=== PATIENT | male | born 1945 | race Caucasian/White ===

== ENCOUNTER 2024-07-29 08:36 | Emergency (ER) | payer OTHER, MEDICARE, SELFPAY ==
[2024-07-29] VITALS (7 sets, daily range): BP systolic 153–191; BP diastolic 61–85; BMI 24.3
--- NOTE | 2024-07-29 09:19 | ED.GENMED ---
History of Present Illness
General
Chief Complaint: Back Pain
Source: patient and family
Exam Limitations: none
Time Seen by Provider: 07/29/24 09:02
History of Present Illness
History of Present Illness:
Patient is an 79-year-old male who presents to the ER for evaluation of right flank pain. Patient woke up in the middle of the night with pain to the right flank with radiates to the right groin. Pt has been nauseous and dry heaving.Pt denies
any obvious hematuria. He does have prostate issues and early has some difficulty initiating urine stream. Denies any trauma.
Past History
Past History
ED Past Medical History: Hypothyroidism
Social History
Personal:
Review of Systems
Review of Systems
Allergies reviewed?: Yes
All Other Systems: ROS reviewed and negative except as documented in HPI and ROS
Constitutional: Reports no symptoms; Denies fever, fatigue or chills
Respiratory: Reports no symptoms
ABD/GI: Reports abdominal pain (Pain in right lower groin) and nausea; Denies vomiting or diarrhea
: Reports no symptoms
Musculoskeletal: Reports no symptoms
Neurological: Reports no symptoms
Psychiatric: Reports no symptoms
Phy Exam
General Physical Exam
General Presentation: no apparent distress
General age: appears stated age
General Skin: warm and dry
General Habitus: normal
General Mental: alert
General Hydration: appears well hydrated
Gastrointestinal Exam
Gastrointestinal Exam: non tender and soft
Neurological Exam
Neurological Exam: alert and oriented x3
Skin Exam
Skin Exam: normal color and warm/dry
Psychiatric Exam
Psychiatric Exam: normal mood/affect
Course
Orders/Labs/Results
Orders:
Orders
07/29/24 09:18
CT Abd/pel Without Iv Or Oral Urgent
Comment:
Reason For Exam: right flank pain
IV Insert/Care/Rem.- Treatment PRN
0.9% Sodium Chloride 1000 ml [Nss] 1,000 ml IV BOLUS
07/29/24 09:19
Ketorolac [Toradol] 15 mg IV NOW STA
Ondansetron Injectable [Zofran] 4 mg IV NOW STA
07/29/24 09:32
Complete Blood Count/With Diff Urgent
Comprehensive Metabolic Panel Urgent
07/29/24 11:06
Urinalysis Reflex To Culture Urgent
Date Specimen was Collected: 07/29/24
Time Specimen was Collected: 09:24
07/29/24 11:37
Piperacillin/Tazo 3.375 Gram [Zosyn] 3.375 gram in 50 ml .ROUTE .STK-MED
Abnormal Lab Results
07/29/24 07/29/24
09:32 11:06
MPV 10.5 H fL
(7.4-10.4)
Absolute Lymphs (auto) 0.6 L 10^3/uL
(1.2-3.4)
Neutrophils % 86.0 H %
(42.2-75.2)
Lymphocytes % 8.5 L %
(20.5-51.1)
BUN 33 H mg/dl
(9-20)
Creatinine 1.5 H mg/dL
(0.7-1.3)
Glucose 131 H mg/dl
(70-99)
Total Bilirubin 1.8 H mg/dl
(0.2-1.3)
Urine Ketones 1+ A
(Negative)
07/29/24 09:32
07/29/24 09:32
Vital Signs
Initial and Last Documented VS:
Initial Vital Signs
Temp Pulse Resp BP Pulse Ox
97.6 F 52 20 191/78 100
07/29/24 08:37 07/29/24 08:37 07/29/24 08:37 07/29/24 08:37 07/29/24 08:37
Last Documented Vital Signs
Temp Pulse Resp BP Pulse Ox
98.9 F 52 0 171/65 97
07/29/24 09:25 07/29/24 11:15 07/29/24 10:15 07/29/24 11:04 07/29/24 11:15
[employer] consulted with Physician
[employer] consulted with physician?: Yes
Name of Physician Consulted: Sherly
MDM/Problems Addressed
MDM/Problems Addressed:
Patient is an 79-year-old male who presented with right flank pain rating to his right groin since 9:00 last night associate with dry heaves and nausea. Patient is no prior history of kidney stones. Patient presents awake alert no acute distress
no hematuria. CAT scan shows of the bladder is distended with a large prostate possibly recently passed ureteral right calculus could also be considered there is bilateral ureteral pelvic calyceal dilatation right greater than left otherwise there
is also edema surrounding the right ureter and right renal pelvis. Patient was given nausea medicine Toradol feeling better will obtain urine to ensure no infection. Patient's BUN/creatinine mildly elevated he was given fluids here in the ER
stable no acute distress. Likely recently passed stone.
12:30: Patient on reexam is asymptomatic and in no acute distress case discussed ED physician stable for discharge home
*Radiology
Radiology exam reviewed: radiology read reviewed
*Critical Care Note
Total Time (30-74mins, 75-104mins- exclusive of procedures): Not Applicable
ED Attending Note
-
Portions of this chart may have been created with voice recognition software.� Occasional wrong word or��sound alike� substitutions may have occurred due to the inherent limitations of voice recognition software.
Discharge Plan
Departure
Patient Disposition: Home (Routine Discharge)
Date of Disposition: 07/29/24
Time of Disposition: 12:32
Patient with high blood pressure during this ER visit?: Yes
Condition: Fair
Covid-19: Not Applicable
Discharge Problem:
Acute flank pain
Instructions: BLOOD PRESSURE
Prescriptions:
No Action
levothyroxine 112 MCG tablet
112 mcg PO DAILY
Referrals:
Philip Solares MD [Active] -
Sabina Tubbs MD [Family Provider] -
Activity Restrictions/Additional Instructions:
As discussed it is likely that you passed a kidney stone.
Continue to stay well-hydrated. Your kidney function was mildly elevated please have this rechecked in the next week by your family doctor. in addition your blood pressure was also elevated please have this rechecked as well.
please follow-up with urology. Call to make an appointment as soon as possible. Return if any worsening of symptoms of increased pain nausea vomiting fever chills or any further concerns.
Interventions
Interventions:
*Risk Screen - Suicide Last Done: 07/29/24 08:40
*General Assessment Last Done: 07/29/24 09:25
*Neglect/Abuse Screening Last Done: 07/29/24 09:25
ED- Fall Risk Assessment Last Done: 07/29/24 09:25
*ED COVID-19 Vaccine History Last Done: 07/29/24 09:25
ED-Musculoskeletal Assessment Last Done: 07/29/24 09:25
Discharge Date and Time
Print Language: URDU
[2024-07-29] MEDS: NSS 1000 IV (09:40)
[2024-07-29] MEDS: TORADOL 15 MG IV (09:40)
[2024-07-29] MEDS: ZOFRAN 4 MG IV (09:41)
[2024-07-29 09:46] LABS: % Basophils 0.4 % (0-2); % Immature Granulocytes 0.4 % (0-0.5); % Lymphocytes 8.5 % (20.5-51.1); % Monocytes 4.7 % (1.7-9.3); Absolute Lymphocytes 0.6 10^3/uL (1.2-3.4); Absolute Monocytes 0.3 10^3/uL (0.1-0.6); Absolute Neutrophils 5.9 10^3/uL (1.4-6.5); Hematocrit 43.8 % (39.0-52.0); Hemoglobin 14.8 g/dL (13.0-18.0); Mean Corp Hgb Conc. 33.8 g/dL (33.0-37.0); Mean Corpuscular Hgb 30.6 pg (27.0-31.0); Mean Corpuscular Volume 90.7 fL (80.0-94.0); Mean Platelet Volume 10.5 fL (7.4-10.4); Nucleated Red Blood Cells % 0 % (-); Platelet Count 209 10^3/uL (130-400); Red Blood Cell Count 4.83 10^6/uL (4.70-6.10); Red Cell Dist. Width 12.4 % (11.5-14.5); White Blood Cell Count 6.9 10^3/uL (4.8-10.8)
[2024-07-29 10:00] LABS: ALT (SGPT) 27 U/L (0-50); AST (SGOT) 35 U/L (17-59); Albumin 4.3 g/dl (3.5-5.0); Alkaline Phosphatase 98 U/L (38-126); Blood Urea Nitrogen 33 mg/dl (9-20); Calcium 9.2 mg/dl (8.4-10.2); Carbon Dioxide 23 mmol/L (22-30); Chloride 105 mmol/L (98-107); Estimated Creatinine Clearance 46 ml/min; Glucose 131 mg/dl (70-99); Potassium 4.2 mmol/L (3.5-5.1); Sodium 142 mmol/L (135-145); Total Bilirubin 1.8 mg/dl (0.2-1.3); Total Protein 6.8 g/dl (6.3-8.2); eGFR 46.77
[2024-07-29 11:15] LABS: Urine Albumin Negative (Neg - Trace); Urine Bilirubin Negative (Negative); Urine Character Slightly Cloudy (Clear); Urine Color Yellow; Urine Glucose Negative (Negative); Urine Ketone 1+ (Negative); Urine Leukocyte Negative (Negative); Urine Nitrite Negative (Negative); Urine Occult Blood Negative (Negative); Urine Urobilinogen Negative (Neg - 1+)
== END 2024-07-29 13:14 | disposition home or self-care (01) ==
LOC: EMR 08:36
PROVIDERS: Nurse Practitioner; EMERGENCY PHYSICIAN Emergency Medicine; FAMILY PHYSICIAN Internal Medicine Gastroenterology
DX: R10.9 Unspecified abdominal pain (principal); R11.0 Nausea; R03.0 Elevated blood-pressure reading, without diagnosis of hypertension; E03.9 Hypothyroidism, unspecified; N40.0 Benign prostatic hyperplasia without lower urinary tract symptoms
CPT/HCPCS: 99284; 96374; 96375; 96361; 74176; 80053; 81003; 85025

== ENCOUNTER 2024-07-30 10:01 | Inpatient (IN) | payer OTHER, SELFPAY ==
[2024-07-30] VITALS (9 sets, daily range): BP systolic 124–170; BP diastolic 59–80
[2024-07-30 06:31] LABS: Urine Albumin Negative (Neg - Trace); Urine Bilirubin Negative (Negative); Urine Character Clear (Clear); Urine Color Yellow; Urine Glucose Negative (Negative); Urine Ketone Negative (Negative); Urine Leukocyte Negative (Negative); Urine Nitrite Negative (Negative); Urine Occult Blood Negative (Negative); Urine Specific Gravity 1.015 (<1.030); Urine Urobilinogen Negative (Neg - 1+)
[2024-07-30 06:32] LABS: Hematocrit 41.5 % (39.0-52.0); Hemoglobin 14.2 g/dL (13.0-18.0); Mean Corp Hgb Conc. 34.2 g/dL (33.0-37.0); Mean Corpuscular Hgb 31.2 pg (27.0-31.0); Mean Corpuscular Volume 91.2 fL (80.0-94.0); Platelet Count 199 10^3/uL (130-400); Red Blood Cell Count 4.55 10^6/uL (4.70-6.10); Red Cell Dist. Width 12.5 % (11.5-14.5); White Blood Cell Count 7.9 10^3/uL (4.8-10.8)
[2024-07-30 06:45] LABS: Blood Urea Nitrogen 30 mg/dl (9-20); Calcium 9.3 mg/dl (8.4-10.2); Carbon Dioxide 26 mmol/L (22-30); Chloride 103 mmol/L (98-107); Glucose 108 mg/dl (70-99); Potassium 4.9 mmol/L (3.5-5.1); Sodium 138 mmol/L (135-145); eGFR 29.54
--- NOTE | 2024-07-30 07:33 | ED.GENMED ---
History of Present Illness
General
Chief Complaint: Abdominal Pain
Source: patient
Exam Limitations: none
Time Seen by Provider: 07/30/24 07:20
Nursing documentation reviewed up to this point in time: agreed with
History of Present Illness
History of Present Illness:
79-year-old male presents emergency department due to lower abdominal discomfort. He states he has been unable to sleep. When he urinates he does not feel like he empties completely. Yesterday he had a CT scan that showed distended bladder,
possible recently passed right ureteral calculus.
Past History
Past History
ED Past Medical History: Hypothyroidism
ED Past Surgical History: Tonsilectomy
Social History
Tobacco: Non-smoker
Alcohol: None
Drug: None
Personal:
Living: with family
Review of Systems
Review of Systems
Allergies reviewed?: Yes
All Other Systems: Not applicable
Constitutional: Reports no symptoms
EENT: Reports no symptoms
Respiratory: Reports no symptoms
Cardiac: Reports no symptoms
ABD/GI: Reports no symptoms
: Reports difficulty voiding
Musculoskeletal: Reports no symptoms
Skin: Reports no symptoms
Neurological: Reports no symptoms
Endocrine: Reports no symptoms
Hematologic/Lymphatic: Reports no symptoms
Psychiatric: Reports no symptoms
Phy Exam
Physical Exam
Physical Exam:
Physical Exam
General: Afebrile
Neck: supple. no meningeal signs. normal posterior pharynx
Heart: s1/s2 regular rate and rhythm, no murmur. equal radial
pulses.
HEENT: Pupils equal round reactive to light, EOMI
Lungs: no acute respiratory distress. clear bilaterally
Abdomen: normal bowel sounds. not tender. no CVAT, bladder distended
Neuro: alert and oriented. no focal neurological deficits cranial nerves II through XII intact
Skin: no rash
Psychiatric: well kept. interactive and cooperative
Extremities: no edema. no calf tenderness. negative homans. good distal pulses
Course
Orders/Labs/Results
Orders:
Orders
07/30/24 06:15
Basic Metabolic Panel Urgent
Complete Blood Count/No Diff Urgent
07/30/24 06:21
Urinalysis Urgent
Date Specimen was Collected: 07/30/24
Time Specimen was Collected: 06:06
07/30/24 07:23
Bladder Scan- Treatment ONCE
07/30/24 07:38
Loco Placement- Treatment ONCE
Reason for insertion: Acute Retention
IV Insert/Care/Rem.- Treatment PRN
Abnormal Lab Results
07/30/24
06:15
RBC 4.55 L 10^6/uL
(4.70-6.10)
MCH 31.2 H pg
(27.0-31.0)
MPV 11.0 H fL
(7.4-10.4)
BUN 30 H mg/dl
(9-20)
Creatinine 2.2 H mg/dL
(0.7-1.3)
Glucose 108 H mg/dl
(70-99)
07/30/24 06:15
07/30/24 06:15
Vital Signs
Initial and Last Documented VS:
Initial Vital Signs
Temp Pulse Resp BP Pulse Ox
97.5 F 56 22 170/80 100
07/30/24 06:02 07/30/24 06:02 07/30/24 06:02 07/30/24 06:02 07/30/24 06:02
Last Documented Vital Signs
Temp Pulse Resp BP Pulse Ox
97.5 F 56 22 170/80 100
07/30/24 06:02 07/30/24 06:02 07/30/24 06:02 07/30/24 06:02 07/30/24 06:02
MDM/Problems Addressed
Differential Diagnosis Includes:
Acute renal failure, kidney stone, bladder outlet obstruction
MDM/Problems Addressed:
79-year-old male with acute renal failure, urinary retention. Will place Loco catheter, admit to hospitalist due to worsening renal failure.
*Radiology
Radiology exam reviewed: radiology read reviewed
*Pulse Oximetry
Patient hypoxic: no
*Critical Care Note
Total Time (30-74mins, 75-104mins- exclusive of procedures): Not Applicable
ED Attending Note
-
Portions of this chart may have been created with voice recognition software.� Occasional wrong word or��sound alike� substitutions may have occurred due to the inherent limitations of voice recognition software.
Discharge Plan
Departure
Patient Disposition: Admit
Date of Disposition: 07/30/24
Time of Disposition: 07:45
Presentation/result/management discussed w/ accepting MD/DO: Hospitalist
Patient with high blood pressure during this ER visit?: Yes
Condition: Good
Discharge Problem:
Acute renal failure, Acute urinary retention
Prescriptions:
No Action
levothyroxine 112 MCG tablet
112 mcg PO DAILY
Interventions
Interventions:
*Risk Screen - Suicide Last Done: 07/30/24 06:02
*General Assessment Last Done: 07/30/24 06:25
*Neglect/Abuse Screening Last Done: 07/30/24 06:02
ED- Fall Risk Assessment Last Done: 07/30/24 06:24
*ED COVID-19 Vaccine History Last Done: 07/30/24 06:25
TK-Wsqgjg-Yqgldyjjaj Assessment Last Done: 07/30/24 06:24
Discharge Date and Time
Print Language: TUNISIAN
--- NOTE | 2024-07-30 09:53 | HPS.HSE ---
Family Physician
-
Family Physician: Gustavo Bernal
Chief Complaint
-
Lower abdominal discomfort/back pain
History of Present Illness
Patient is 79-year-old male with past medical history of hypothyroidism, occasional alcohol use came to ER with new onset of lower abdominal pain and back pain. Symptoms started from yesterday. For last 2 weeks patient have not noticed some
soiling of trouser in night. Patient also noticed some urinary dribbling/urgency and increased nocturia. Patient denies of ever being diagnosed with BPH/UTI/renal stone. Yesterday patient started to having lower abdominal discomfort which
continued to get worse, came to ER for further evaluation and was noted to having significant urinary retention on bladder scan. Further workup showing renal failure as well. A Loco catheter was placed resulting minimal hematuria and patient was
admitted to hospitalist service for further management.
Patient have some associated nausea without vomiting. No change in bowel habits no fever. No cardiopulmonary complaints
Medical History
Past Medical History
Past Medical History: Reports Hypothyroidism
Past Surgical History: Reports None
Social History
Tobacco: Non-smoker
Alcohol: Occasional
Drug: None
Personal:
Living: With Family
Family History
Family History: Not pertinent
Allergies / Home Medications
Allergies reflects when Allergies were last updated in [facility].
Home Medications with original date entered in [facility]
Allergy/Medication List:
Allergies
Allergy/AdvReac Type Severity Reaction Status Date / Time
No Known Allergies Allergy Verified 07/30/24 06:06
Home Medications
levothyroxine 112 mcg tablet 112 mcg PO DAILY 08/29/13
Review of Systems
-
A 12 point ROS was completed and negative except as noted: Yes
Physical Exam
Vital Signs
Vital Signs
Temp Pulse Resp BP Pulse Ox
97.5 F 56 22 170/80 100
07/30/24 06:02 07/30/24 06:02 07/30/24 06:02 07/30/24 06:02 07/30/24 06:02
Physical Exam
General: Well Developed, Well Nourished and No Apparent Distress
HEENT: NormoCephalic, Moist mucous membranes and Atraumatic
Respiratory: Clear
Cardiac: S1/S2 and Regular Rhythm; No Murmur or Rub
GI: Soft, Non Tender, Non Distended and Normal Bowel Sounds; No Organomegaly
Rectal: Deferred by Provider
Genito-urinary: Loco (Hematuria)
Musculoskeletal: No Clubbing, No Cyanosis and No Edema
Skin: No Rash
Neuro: Nonfocal/grossly intact
Laboratory Results
-
07/30/24 06:15
07/30/24 06:15
Data Reviewed
-
Lab Data: Labs Reviewed by me, Discussed with Patient and Discussed with Family
Impression/Plan
-
1. Acute urinary retention
Hematuria
Possible BPH
-Patient came in with acute onset urinary retention with lower abdominal discomfort
-Loco catheter placed with drainage of 1 L of blood mixed urine
-Renal bladder ultrasound ordered
-UA did not show any pyuria/bacteriuria
-Patient have symptoms of undiagnosed BPH, urology evaluation requested.
2. EDGARDO
-baseline unknown
-Likely postrenal with clinical presentation of urinary retention
-Avoid nephrotoxic medication
-Maintain on slow LR 1 bag only
-Follow-up renal function
3. Hypothyroidism
-Continue levothyroxine
4. Elevated blood pressure
-Systolic blood pressure in 170s, patient denies of diagnosed for hypertension
-Presuming pain related elevation, monitor and will start medication if needed
DVT PPX -scd
Full code
Total time spent : 78 mins
I personally saw and examined the patient.
I have reviewed all diagnostic interpretations and treatment plans as written.
Time includes patient management by me, time spent at the patients bedside, time to review lab and imaging results, discussing patient care, documentation in the medical record, and time spent with the family or caregiver and discussing care plan
with RN/Consultants.
--- NOTE | 2024-07-30 12:27 | W.PN.URO.CBU ---
Today's Communication / Plan
-
TEACH PATRICK AND LEG BAG CARE
Assessment / Plan
-
BPH ONGOING WITH ACUTE INSUT WITH EDGARDO NOW U/S SHOWS IMPROVEMNNT OF HYDRO WITH PATRICK HOME WITH PATRICK ON FINASYERIDE AND FLOMAX
Diagnosis
-
Date of Service: July 30, 2024
-
Patient Diagnosis:ACUTE ON CHRONIC RETENTION WITH EDGARDO DUE TO BPH AND OVERDISTENSION OF BLADDER
Post Op Day:
Subjective
-
MUCH BETTER WITH PATRICK NO ABD PAIN
Objective
-
Vital Signs
Temp Pulse Resp BP Pulse Ox
97.5 F 56 22 130/61 98
07/30/24 06:02 07/30/24 06:02 07/30/24 06:02 07/30/24 10:34 07/30/24 10:45
Laboratory Results
07/30/24 06:15
07/30/24 06:15
Review of Systems
-
: Difficulty Voiding
Physical Exam
-
General - well developed, well nourished, no acute distress
Chest - clear bilaterally
Abdomen - soft, non-tender, positive bowel sounds, no CVAT, no incisional pain or distention
Genitalia - normal
Rectal - normal
Skin - warm & dry with no rash
Neuro - AOx3, no motor deficits
Extremities - no clubbing, no cyanosis, no edema
Incision - clean, dry
Dressing - clean, dry, intact
Care Review
Data Reviewed
Discussed with: Hospitalist and Family
CT Scan: Image Pers Reviewed
Ultrasound: Image Pers Reviewed
[2024-07-30] MEDS: SYNTHROID PO (12:59)
[2024-07-30] MEDS: LR 1000 IV (13:00)
--- NOTE | 2024-07-30 15:00 | PTCARENOTE ---
Leg bag and gong bag teaching and care done with patient. Patient verbalized understanding. Supplies in room.
[2024-07-31] MEDS: LR 1000 IV (01:56)
[2024-07-31 06:23] LABS: Hematocrit 38.5 % (39.0-52.0); Hemoglobin 13.1 g/dL (13.0-18.0); Mean Corpuscular Hgb 30.8 pg (27.0-31.0); Mean Corpuscular Volume 90.6 fL (80.0-94.0); Mean Platelet Volume 11.2 fL (7.4-10.4); Platelet Count 185 10^3/uL (130-400); Red Blood Cell Count 4.25 10^6/uL (4.70-6.10); Red Cell Dist. Width 12.5 % (11.5-14.5); White Blood Cell Count 6.8 10^3/uL (4.8-10.8)
[2024-07-31 06:45] LABS: Blood Urea Nitrogen 23 mg/dl (9-20); Calcium 8.6 mg/dl (8.4-10.2); Carbon Dioxide 26 mmol/L (22-30); Chloride 106 mmol/L (98-107); Glucose 92 mg/dl (70-99); Potassium 4.3 mmol/L (3.5-5.1); Sodium 140 mmol/L (135-145); eGFR > 60.00
[2024-07-31 07:15] VITALS: BP 118/55
[2024-07-31] MEDS: FLOMAX 0.4 MG PO (08:41)
[2024-07-31] MEDS: PROSCAR 5 MG PO (08:41)
[2024-07-31] MEDS: SYNTHROID 112 MCG PO (08:41)
[2024-07-31] MEDS: SENOKOT-S 1 TABLET PO (08:50)
[2024-07-31 10:04] VITALS: BP 150/73; PULSE 53; O2SAT 100
[2024-07-31 10:06] VITALS: BP 150/73; PULSE 52; O2SAT 100
--- NOTE | 2024-07-31 10:12 | PTOTSP ---
pt currently requires no assistance to complete simple ADLs, functional transfers, ambulation. educated pt regarding catheter, dressing and care. pt verbalized understanding. no acute OT needs identified at this time, will sign off.
--- NOTE | 2024-07-31 10:15 | PTOTSP ---
Patient with good insight into safety with mobility and no need of AD at this time.
At this time demonstrates independence with mobility and does no demonstrate further need for skilled therapy. Will discharge at this time. If needs change, please re-consult.
--- NOTE | 2024-07-31 12:43 | CM ---
Reviewed the chart notes and spoke with the patient at the bedside. The patient resides with his spouse, daughter and son-in-law in a three story home with two steps to enter. The daughter and son-in-law occupy the third level. The patient
reports no DME/VN/SNF in the past. The patient confirmed his pharmacy of choice is the [facility] Discuss VN options. Patient declined at this time. Patient feels he will be able to manage gong cath. CM continues to be
available to patient/family and is monitoring medical plan for needs at discharge.
Plan: Discharge to home when medically stable. No needs identified at this time.
--- NOTE | 2024-07-31 12:52 | W.PN.URO.CBU ---
Today's Communication / Plan
-
OK FROM [facility] FOR DISCHARGE
Assessment / Plan
-
BPH ONGOING WITH ACUTE INSUT WITH EDGARDO NOW U/S SHOWS IMPROVEMNNT OF HYDRO WITH GONG HOME WITH GONG ON FINASYERIDE AND FLOMAX CREATININE RETURNED TO [facility] G[facility]
Diagnosis
-
Date of Service: July 31, 2024
-
Patient Diagnosis:
Post Op Day:
Patient Diagnosis:ACUTE ON CHRONIC RETENTION WITH EDGARDO DUE TO BPH AND OVERDISTENSION OF BLADDER
Post Op Day:
Subjective
-
tolerating gong
Objective
-
Vital Signs
Temp Pulse Resp BP Pulse Ox
98.3 F 52 16 118/55 96
07/31/24 07:15 07/31/24 07:15 07/31/24 07:15 07/31/24 07:15 07/31/24 08:00
Intake and Output
07/30/24 07/31/24 08/01/24
06:59 06:59 06:59
Intake Total 1360 / 1360 900 / 900
Output Total 1800 / 1800 2500 / 2500
Balance -440 / -440 -1600 / -1600
Intake:
Oral fluids 960 / 960
IV fluids (Total) 400 / 400 900 / 900
Output:
Urine, Gong 1800 / 1800 2500 / 2500
Laboratory Results
07/31/24 05:25
07/31/24 05:25
Review of Systems
-
: Difficulty Voiding
Physical Exam
-
General - well developed, well nourished, no acute distress
Chest - clear bilaterally
Abdomen - soft, non-tender, positive bowel sounds, no CVAT, no incisional pain or distention
Genitalia - normal
Rectal - normal
Skin - warm & dry with no rash
Neuro - AOx3, no motor deficits
Extremities - no clubbing, no cyanosis, no edema
Incision - clean, dry
Dressing - clean, dry, intact
Care Review
Data Reviewed
Discussed with: Nursing
CT Scan: Image Pers Reviewed
Ultrasound: Image Pers Reviewed
--- NOTE | 2024-07-31 13:19 | W.PN.HOSP.TC ---
Today's Communication/Plan
-
dc home with gong
op uro f/u
Assessment / Plan
Assessment / Plan
1. Acute urinary retention
Hematuria
BPH
-Patient came in with acute onset urinary retention with lower abdominal discomfort
-Gong catheter placed with drainage of 1 L of blood mixed urine
-Renal bladder ultrasound ordered
-UA did not show any pyuria/bacteriuria
-Patient have symptoms of undiagnosed BPH, urology evaluation requested.
-started on flomax/finasteride. Dc home with gong. Asked VN but patient refused.
2. EDGARDO
-baseline unknown
-Likely postrenal with clinical presentation of urinary retention
-Avoid nephrotoxic medication
-Maintain on slow LR 1 bag only
-Follow-up renal function-Cr wnl.
3. Hypothyroidism
-Continue levothyroxine
4. Elevated blood pressure
-Presuming pain related elevation, monitor and will start medication if needed
-BP 118/55.
DVT PPX -scd
Full code
More than 30 minutes spent in discharge including
Final examination of the patient
Summarizing hospital stay
Instructions for continuing care to all relevant caregivers
Preparation of discharge records, prescriptions, and referral forms
Total time spent (in minutes): 55
Anticipated Discharge: Today
Subjective/Interval History
-
Date of Service: July 31, 2024
feeling better
no abd pain
Objective Data
-
Labs:
Laboratory Results
07/31/24
05:25
WBC 6.8
Hgb 13.1
Hct 38.5 L
Plt Count 185
Sodium 140
Potassium 4.3
Chloride 106
Carbon Dioxide 26
BUN 23 H
Creatinine 1.1
Glucose 92
Calcium 8.6
Vital Signs:
Vital Signs
Temp Pulse Resp BP Pulse Ox
98.3 F 52 16 118/55 96
07/31/24 07:15 07/31/24 07:15 07/31/24 07:15 07/31/24 07:15 07/31/24 08:00
I&O
07/30/24 07/31/24 08/01/24
06:59 06:59 06:59
Intake Total 1360 / 1360 900 / 900
Output Total 1800 / 1800 2500 / 2500
Balance -440 / -440 -1600 / -1600
Physical Exam
-
General: Well Developed and No Apparent Distress
HEENT: Normocephalic, Atraumatic and Moist Mucous Membranes
Respiratory: Clear to Auscultation
Cardiac: Regular Rhythm and S1/S2; Negative Murmur, Rub or Gallop
GI: Soft, Nontender, Nondistended and Normal Bowel Sounds; Negative Organomegaly
Rectal: Deferred by Provider
Genito-urinary: Gong (with mild blood noted )
Musculoskeletal: No Clubbing, No Cyanosis and No Edema
Skin: Negative Rash
Neuro: Awake, AO x 3, No Motor Deficits and Nonfocal/Grossly Intact
Psych: Calm
--- NOTE | 2024-07-31 13:26 | W.DCSUMMARY ---
Discharge Summary
Discharge Data
Date of Admission: 07/30/24
Date of Discharge: 07/31/24
-
Pending Results: No
Hospital Course
79-year-old male past medical history of hypothyroidism was presenting from home with complaint of significant abdominal and periumbilical discomfort. In the ER patient underwent CT abdomen pelvis which showed Bilateral ureteral and pelvicalyceal
dilation, right greater than left. On the right, there is also edema surrounding the right ureter and right renal pelvis. Bladder is distended with an enlarged prostate gland. Findings most likely on the basis of distended bladder and resultant
obstruction. Possibility of a recently passed right ureteral calculus could also be considered. Low-density lesions within the liver, which very likely represent cysts. No further imaging follow-up of these lesions is felt to be needed. Patient
with significant improvement in symptoms post Loco catheter placement. Creatinine which was elevated on admission trended down to normal post Loco catheter placement. Patient was started on Flomax and finasteride. Patient was eval by urology
Dr. Solares. Plan will be to discharge home with Loco catheter. Outpatient follow-up with Dr. Solares for voiding trial.
Discharge Plan
-
Patient Disposition: Home (Routine Discharge)
Discharge Diagnosis/Procedures: Acute urinary retention
Acute urinary secondary urinary retention
Status post Loco catheter placement
Condition: Fair
Diet: As tolerated
Activity: No restrictions
Driving Restrictions: As prior to admission
Instructions: How to Care for Your Loco Catheter, Male
Referrals:
Gustavo Bernal MD [Family Provider] - in less than 1 week
Philip Solares MD [Active] - (CALL DR [facility] [phone] TO [facility] VOIDING APPT)
Prescriptions:
New
tamsulosin 0.4 mg Capsule
0.4 mg PO DAILY 30 Days Qty: 30 0RF
finasteride 5 mg Tablet
5 mg PO DAILY 30 Days Qty: 30 0RF
Continued
fluorouracil 5 % Cream
1 applic TOPICAL BID
levothyroxine 100 mcg Tablet
100 mcg PO DAILY
cholecalciferol (vitamin D3) [Vitamin D3] 25 mcg (1,000 unit) Tablet
25 mcg PO DAILY
magnesium glycinate 100 mg Tablet
100 mg PO DAILY
quercetin 500 mg Capsule
500 mg PO DAILY
Discharge Orders:
Discharge Patient (As Directed); Ordered 07/31/24
Ordered By: Pasha Thompson
Discharge Date and Time
Print Language: EQUATORIAL GUINEAN
[2024-07-31 14:12] VITALS: BP 134/65
--- NOTE | 2024-07-31 14:54 | PTCARENOTE ---
Leg bag and Loco bag teaching and care done with patient. Patient verbalized and demonstrated understanding of care. All questions answered.
== END 2024-07-31 15:06 | disposition home or self-care (01) | DRG 726 ==
LOC: 2 SOUTH 10:01
PROVIDERS: ADMITTING PHYSICIAN Hospitalist; ATTENDING PHYSICIAN Hospitalist; CONSULT PHYSICIAN Specialist; EMERGENCY PHYSICIAN Emergency Medicine; FAMILY PHYSICIAN Family Medicine
DX: N40.1 Benign prostatic hyperplasia with lower urinary tract symptoms (principal); N13.30 Unspecified hydronephrosis; N17.9 Acute kidney failure, unspecified; E03.9 Hypothyroidism, unspecified; Z79.890 Hormone replacement therapy; R31.0 Gross hematuria
CPT/HCPCS: 51702; 51798; 76770; 80048; 81003; 85027; 97116; 97162; 97165; 99285